=== PATIENT | female | born 1955 | race Caucasian/White ===

== ENCOUNTER 2016-12-04 21:05 | Emergency (ER) | payer OTHER ==
[~2016-12-04] VITALS: Ht 167.6 cm; Wt 71.0 kg
[~2016-12-04 21:05] MED LIST: CIPR500T4 PO; MULT-65 PO; PROM25SU8 PO
[2016-12-04 21:12] VITALS: BP 162/85; PULSE 78; RESP 16; TEMP 98.2; O2SAT 100
[2016-12-04] MEDS ORDERED: GUAISYP4 PO (21:51)
[2016-12-04] MEDS ORDERED: AZIT250T3 PO (21:52)
[2016-12-04] MEDS ORDERED: PRED20 PO (21:52)
--- NOTE | 2016-12-04 21:56 | PD ---
HPI Chief Complaint: Cold / Flu Symptoms Time Seen by Provider: 21:54 Travel History International Travel<30 days: No Contact w/Intl Traveler<30days: No Traveled to known affect area: No History of Present Illness HPI 61-year-old female that presents to the ED for evaluation of cold-like symptoms. Per patient she's had cold like symptoms for about a week. Per patient she really thought it was allergies but she started developing a cough for the past 4 days that is more severe. Per patient what concerned her the most is that today she's had more coughing spells that are more severe and he for she tried to go to bed she had a severe want to cause her to be short of breath. Per patient she feels better but she is concerned because of this. She denies any history of smoking or asthma. She denies any chest pain. Per patient coughs productive. States having some congestion. Sick contacts noted. No allergies to medication. States having some chills and possible fever. Denies any medical problems. No allergies to medication. No recent travel. States that she's been taking OTC meds with minimal relief. PFSH Past Medical History Diminished Hearing: No Headaches: Yes Immunizations Current: Yes Menopausal: Yes : 1 Para: 1 Past Surgical History Appendectomy: Yes Other Surgery: Yes (GANGLION CYST REMOVAL, RIGHT WRIST) Social History Alcohol Use: Yes (RARE) Tobacco Use: No Substance Use: No Allergies-Medications (Allergen,Severity, Reaction): Coded Allergies: No Known Allergies (Verified , 07/07/15) Reported Meds & Prescriptions Reported Meds & Active Scripts Active Azithromycin 250 Mg Tab 250 Mg PO DIRECTED Take 2 tabs (500 mg) on day 1 then 1 tab daily x 4 days. Prednisone 20 Mg Tab 20 Mg PO BID Guaifenesin AC Liq (Guaifenesin-Codeine Liq) 100-10 Mg/5 Ml Syrp 5 Ml PO Q6H PRN Cipro (Ciprofloxacin HCl) 500 Mg Tab 500 Mg PO BID Promethazine Hcl (Promethazine HCl) 25 Mg Tab 25 Mg PO Q6H PRN FOR NAUSEA/VOMITING Reported Multi-Vitamin Daily (Multivitamins) Daily Tab 1 Tab PO DAILY Review of Systems Except as stated in HPI: all other systems reviewed are Neg Physical Exam Narrative GENERAL: Well-nourished, well-developed patient in no apparent distress. SKIN: Warm and dry. HEAD: Atraumatic. Normocephalic. EYES: Pupils equal and round reactive to light and accommodation. No scleral icterus. No injection or drainage. ENT: No nasal bleeding or discharge. Mucous membranes pink and moist. TMs are clear with no sign of infection or perforation. No mastoid tenderness. Ear canals are intact bilaterally. No lymphadenopathy. Nostril mucosa is red and moist with clear mucus noted. No sinus tenderness to palpation noted. Tonsils are not enlarged or swollen. No ulvua Deviation. Tongue is midline. NECK: Trachea midline. No JVD. No meningeal signs noted CARDIOVASCULAR: Regular rate and rhythm. RESPIRATORY: No accessory muscle use. Clear to auscultation. Breath sounds equal bilaterally. GASTROINTESTINAL: Abdomen soft, non-tender, nondistended. Hepatic and splenic margins not palpable. MUSCULOSKELETAL: Extremities without clubbing, cyanosis, or edema. No obvious deformities. NEUROLOGICAL: Awake and alert. No obvious cranial nerve deficits. Motor grossly within normal limits. Five out of 5 muscle strength in the arms and legs. Normal speech. PSYCHIATRIC: Appropriate mood and affect; insight and judgment normal. Data Data Last Documented VS Vital Signs Date Time Temp Pulse Resp B/P Pulse Ox O2 Delivery O2 Flow Rate FiO2 12/04/16 21:12 98.2 78 16 162/85 100 Orders Chest, Single Ap (12/04/16 ) [facility] Medical Decision Making Medical Screen Exam Complete: Yes Emergency Medical Condition: Yes Medical Record Reviewed: Yes Interpretation(s) Chest x-ray negative for acute disease. Differential Diagnosis Pneumonia versus bronchitis versus sinusitis versus URI Narrative Course 61-year-old female that presents to the ED for evaluation of cold like symptoms. Patient was properly examined and was found to have signs and symptoms consistent appears to be bronchitis. Chest x-ray was done and was negative for acute disease. Patient was reassured. From history and physical this appears to be bronchitis. Will treat with azithromycin, prednisone as well as cough medicine with codeine to help with her symptoms. She was instructed to follow up closely with PCP. See ED for worsening symptoms. Diagnosis Primary Impression: Bronchitis Patient Instructions: General Instructions Additional Instructions: Motrin and Tylenol for pain and fever. You can use [id number] antihistamine as well as well as Mucinex as needed for runny nose and congestion. Cough drops for cough as needed. Drink plenty of fluids. Follow-up with PCP. See ED for worsening symptoms. Med/Other Pt SpecificInfo: Prescription(s) given Scripts Azithromycin 250 Mg [id number] Mg PO DIRECTED #6 TAB Take 2 tabs (500 mg) on day 1 then 1 tab daily x 4 days. Prov:Zohaib Graf MD 12/04/16 Prednisone 20 Mg Tab20 Mg PO BID #10 TAB Prov:Zohaib Graf MD 12/04/16 Guaifenesin-Codeine Liq (Guaifenesin AC Liq)100-10 Mg/5 Ml Syrp5 Ml PO Q6H PRN ( COUGH) #1 BOTTLE Ref 0 Prov:Zohaib Graf MD 12/04/16 Disposition: 01 DISCHARGE HOME Condition: Stable Terrell Pat Dec 04, 2016 21:56
--- NOTE | 2016-12-04 21:59 | RADHPO ---
EXAM DATE/TIME: 12/04/2016 21:50 [facility] COMPARISON: No previous studies available for comparison. INDICATIONS : Cough. MEDICAL HISTORY : heart murmur. SURGICAL HISTORY : None. ENCOUNTER: Initial ACUITY: 3 days PAIN SCORE: 1/10 LOCATION: Bilateral chest FINDINGS: A single view of the chest demonstrates the lungs to be symmetrically aerated without evidence of mas s, infiltrate or effusion. The cardiomediastinal contours are unremarkable. Osseous structures are intact. CONCLUSION: No acute disease. Travis Brewer MD on December 04, 2016 at 21:57 Board Certified Radiologist. This report was verified electronically.
== END 2016-12-04 22:32 | disposition home or self-care (01) ==
LOC: PHED 21:05 → PHEFT 22:32
DX: J40 Bronchitis, not specified as acute or chronic (principal)
CPT/HCPCS: 71010; 99283

== ENCOUNTER 2017-08-22 23:01 | Emergency (ER) | payer OTHER ==
[~2017-08-22] VITALS: Ht 167.6 cm; Wt 69.9 kg
[~2017-08-22 23:01] MED LIST changes: +AZIT250T3 PO; -CIPR500T4 PO; +GUAISYP4 PO; -MULT-65 PO; +PRED20 PO; -PROM25SU8 PO
[2017-08-22 23:07] VITALS: BP 187/90; PULSE 80; RESP 20; TEMP 97.5; O2SAT 99
[2017-08-22] MEDS ORDERED: CYCL10TA PO (23:24)
[2017-08-22] MEDS ORDERED: TRAM50 PO (23:24)
--- NOTE | 2017-08-22 23:24 | PD ---
HPI . Shoulder pain Chief Complaint: Shoulder pain Time Seen by Provider: 23:16 Travel History International Travel<30 days: No Contact w/Intl Traveler<30days: No History of Present Illness HPI This patient presents with chief complaint of left shoulder pain. Onset was yesterday. Pain is exacerbated by movement. There has been no injury. She states that she has had similar pain several times before. She denies any associated symptoms. PFSH Past Medical History Diminished Hearing: No Headaches: Yes Immunizations Current: Yes Menopausal: Yes : 1 Para: 1 Past Surgical History Appendectomy: Yes Other Surgery: Yes (GANGLION CYST REMOVAL, RIGHT WRIST) Social History Alcohol Use: Yes (RARE) Tobacco Use: No Substance Use: No Allergies-Medications (Allergen,Severity, Reaction): Coded Allergies: No Known Allergies (Verified , 07/07/15) Reported Meds & Prescriptions Reported Meds & Active Scripts Active Azithromycin 250 Mg Tab 250 Mg PO DIRECTED Take 2 tabs (500 mg) on day 1 then 1 tab daily x 4 days. Prednisone 20 Mg Tab 20 Mg PO BID Guaifenesin AC Liq (Guaifenesin-Codeine Liq) 100-10 Mg/5 Ml Syrp 5 Ml PO Q6H PRN Review of Systems Except as stated in HPI: all other systems reviewed are Neg Musculoskeletal: Positive: Myalgias, Limited ROM Physical Exam Narrative GENERAL: Awake and alert and in no acute distress. SKIN: Warm and dry. HEAD: Normocephalic/atraumatic. EYES: Pupils are equal. Extraocular movements are intact. NECK: Normal range of motion. CARDIOVASCULAR: Regular rate and rhythm. Heart sounds are normal. RESPIRATORY: Nonlabored respirations. Lungs are clear with full air movement throughout. MUSCULOSKELETAL: Atraumatic. Tender across the left trapezius muscle. Distally neurovascularly intact. NEUROLOGICAL: Nonfocal. PSYCHIATRIC: Appropriate mood and affect. Data Data Last Documented VS Vital Signs Date Time Temp Pulse Resp B/P (MAP) Pulse Ox O2 Delivery O2 Flow Rate FiO2 08/22/17 23:07 97.5 80 20 187/90 (122) 99 Orders Orders Tramadol (Ultram) (08/22/17 23:30) Cyclobenzaprine (Flexeril) (08/22/17 23:30) MDM Medical Decision Making Medical Screen Exam Complete: Yes Emergency Medical Condition: Yes Differential Diagnosis Differential diagnosis of joint pain includes but is not limited to arthritis, gout, sprain/strain, fracture, dislocation, bursitis Narrative Course This patient presents with chief complaint of left shoulder pain. It is atraumatic. She is tender over her left trapezius. I will discharge her with prescriptions for Ultram and Flexeril. Diagnosis Primary Impression: Strain of left trapezius muscle Qualified Codes: S46.812A - Strain of other muscles, fascia and tendons at shoulder and upper arm level, left arm, initial encounter Med/Other Pt SpecificInfo: Prescription(s) given Scripts Cyclobenzaprine (Flexeril) 10 Mg Tab 10 MG PO TID for Muscle Spasm, #15 TAB 0 Refills Prov: Paige Hammer MD 08/22/17 Tramadol (Ultram) 50 Mg Tab 50 MG PO Q4H Y for PAIN, #12 TAB 0 Refills Prov: Paige Hammer MD 08/22/17 Disposition: 01 DISCHARGE HOME Condition: Stable Paige Hammer MD Aug 22, 2017 23:24
[2017-08-22] MEDS ORDERED: traMADol HCL 50 MG TAB PO ONE (23:30)
[2017-08-22] MEDS ORDERED: CYCLOBENZAPRINE HCL 10 MG TAB PO ONE (23:30)
== END 2017-08-22 23:51 | disposition home or self-care (01) ==
LOC: PHED 23:01
DX: S46.912A Strain of unspecified muscle, fascia and tendon at shoulder and upper arm level, left arm, initial encounter (principal); X58.XXXA Exposure to other specified factors, initial encounter
CPT/HCPCS: 99284